=== PATIENT | female | born 1995 | race Caucasian/White ===

== ENCOUNTER 2017-08-02 16:56 | Emergency (ER) | payer SELFPAY ==
[~2017-08-02 16:56] MED LIST: FERR325T PO; IBUP600 PO; PREN0.01 PO
[2017-08-02 17:12] VITALS: BP 145/59; PULSE 54; RESP 16; TEMP 98; O2SAT 100
--- NOTE | 2017-08-02 20:25 | PD ---
HPI Chief Complaint: Abdominal Pain Time Seen by Provider: 17:12 Travel History International Travel<30 days: No Contact w/Intl Traveler<30days: No Traveled to known affect area: No History of Present Illness HPI 22-year-old female presents to emergency department for evaluation of epigastric pain, nausea, vomiting 3 days. She has had fever and chills. No hematemesis. No diarrhea. Denies any chance of . No other symptoms to report. PFSH Past Medical History Medical History: Denies Significant Hx Immunizations Current: Yes LMP: CURRENT Social History Alcohol Use: No Tobacco Use: No Substance Use: No Allergies-Medications (Allergen,Severity, Reaction): Coded Allergies: No Known Allergies (Unverified , 04/13/14) Reported Meds & Prescriptions Reported Meds & Active Scripts Active Motrin 600 Mg Tab (Ibuprofen) 600 Mg Tab 600 Mg PO Q6H PRN Reported Iron (Ferrous Sulfate) 325 Mg Tab 325 Mg PO BID Vit ( Plus) (Prenat Multivit/[employer] Living [employer]/Iron/Folic Ac) Tab 1 Tab PO DAILY Review of Systems Except as stated in HPI: all other systems reviewed are Neg Physical Exam Narrative Well-nourished female patient. She is ambulatory with a non-ataxic gait. She has even respirations. Normal heart rate. No distention of abdomen. No obvious focal deficits. She moves all extremities. She has clear speech. Data Data Last Documented VS Vital Signs Date Time Temp Pulse Resp B/P (MAP) Pulse Ox O2 Delivery O2 Flow Rate FiO2 08/02/17 17:12 98.0 54 16 145/59 (87) 100 Orders Orders Complete Blood Count With Diff (08/02/17 17:13) Comprehensive Metabolic Panel (08/02/17 17:13) Lipase (08/02/17 17:13) Urinalysis - C+S If Indicated (08/02/17 17:13) Ed Urine Pregnancytest Poc (08/02/17 17:13) Urine Culture (08/02/17 19:25) Labs Laboratory Tests Test 08/02/17 19:21 08/02/17 19:25 White Blood Count 8.3 TH/MM3 Red Blood Count 5.24 MIL/MM3 Hemoglobin 14.9 GM/DL Hematocrit 44.0 % Mean Corpuscular Volume 84.0 FL Mean Corpuscular Hemoglobin 28.4 PG Mean Corpuscular Hemoglobin Concent 33.8 % Red Cell Distribution Width 13.0 % Platelet Count 232 TH/MM3 Mean Platelet Volume 9.0 FL Neutrophils (%) (Auto) 81.0 % Lymphocytes (%) (Auto) 14.7 % Monocytes (%) (Auto) 4.1 % Eosinophils (%) (Auto) 0.1 % Basophils (%) (Auto) 0.1 % Neutrophils # (Auto) 6.7 TH/MM3 Lymphocytes # (Auto) 1.2 TH/MM3 Monocytes # (Auto) 0.3 TH/MM3 Eosinophils # (Auto) 0.0 TH/MM3 Basophils # (Auto) 0.0 TH/MM3 CBC Comment DIFF FINAL Differential Comment Blood Urea Nitrogen 16 MG/DL Creatinine 0.66 MG/DL Random Glucose 88 MG/DL Total Protein 8.1 GM/DL Albumin 4.5 GM/DL Calcium Level 9.6 MG/DL Alkaline Phosphatase 37 U/L Aspartate Amino Transf (AST/SGOT) 16 U/L Alanine Aminotransferase (ALT/SGPT) 31 U/L Total Bilirubin 1.0 MG/DL Sodium Level 142 MEQ/L Potassium Level 3.3 MEQ/L Chloride Level 105 MEQ/L Carbon Dioxide Level 23.8 MEQ/L Anion Gap 13 MEQ/L Estimat Glomerular Filtration Rate 110 ML/MIN Lipase 129 U/L Urine Color YELLOW Urine Turbidity HAZY Urine pH 6.0 Urine Specific [place] 1.036 Urine Protein 100 mg/dL Urine Glucose (UA) NEG mg/dL Urine Ketones 80 mg/dL Urine Occult Blood LARGE Urine Nitrite NEG Urine Bilirubin NEG Urine Urobilinogen 2.0 MG/DL Urine Leukocyte Esterase SMALL Urine RBC /hpf Urine WBC 22 /hpf Urine Squamous Epithelial Cells 7 /hpf Urine Calcium Oxalate Crystals OCC /hpf Urine Amorphous Sediment RARE Urine Bacteria OCC /hpf Urine Mucus MANY /lpf Microscopic Urinalysis Comment CULTURE INDICATED MDM Medical Decision Making Medical Screen Exam Complete: Yes Emergency Medical Condition: Yes Medical Record Reviewed: Yes Differential Diagnosis Gastritis versus gastroenteritis versus cholecystitis versus pancreatitis Narrative Course 22-year-old female presents to emergency department for evaluation of nausea and vomiting with epigastric pain 3 days. Patient appears without distress. Vital signs are stable. Workup is initiated in triage. Prior to bed placement , patient chooses to leave. AMA: The risks of leaving against medical advice without further evaluation treatment were discussed with the patient. These risks include cardiac dysfunction, cardiac dysrhythmia, possible heart attack, possible stroke or . The patient indicated understanding of these risks and appeared to have the capacity to make this decision. Diagnosis Primary Impression: Epigastric abdominal pain Disposition: 07 AGAINST MEDICAL ADVICE Condition: Stable Hattie Serra Aug 02, 2017 20:25
[2017-08-02 20:30] LABS: AUTOMATED NEUTROPHIL # 6.7 TH/MM3 (1.8-7.7); BASOPHIL % 0.1 % (0.0-2.0); EOSINOPHIL % 0.1 % (0.0-4.0); HEMOGLOBIN 14.9 GM/DL (11.6-15.3); LYMPH % 14.7 % (9.0-44.0); LYMPHOCYTE # 1.2 TH/MM3 (1.0-4.8); MEAN CORPUSCULAR HEMOGLOBIN 28.4 PG (27.0-34.0); MEAN CORPUSCULAR HGB CONC 33.8 % (32.0-36.0); MONO % 4.1 % (0.0-8.0); MONOCYTE # 0.3 TH/MM3 (0-0.9); PLATELET COUNT 232 TH/MM3 (150-450); RED BLOOD COUNT 5.24 MIL/MM3 (4.00-5.30); WHITE BLOOD COUNT 8.3 TH/MM3 (4.0-11.0)
[2017-08-02 20:31] LABS: AMORPHOUS SEDIMENT, URINE RARE; BACTERIA, URINE OCC /hpf; BILIRUBIN, URINE NEG (NEG); BLOOD, URINE LARGE (NEG); CALCIUM OXALATE CRYSTALS,URINE OCC /hpf; GLUCOSE,URINE NEG (NEG); KETONE, URINE 80 mg/dL (NEG); MUCUS URINE MANY /lpf (OCC); NITRITE,URINE NEG (NEG); SQUAMOUS EPITHELIAL CELL URINE 7 /hpf (0-5); URINE COLOR YELLOW (YELLW/STRAW); URINE LEUKOCYTE ESTERASE SMALL (NEG)
[2017-08-02 20:46] LABS: ALBUMIN 4.5 GM/DL (3.4-5.0); AST (GOT) 16 U/L (15-37); BICARBONATE 23.8 MEQ/L (21.0-32.0); BLOOD UREA NITROGEN 16 MG/DL (7-18); CALCIUM 9.6 MG/DL (8.5-10.1); CHLORIDE 105 MEQ/L (98-107); CREATININE 0.66 MG/DL (0.50-1.00); GLOMERULAR FILTRATION RATE 110 ML/MIN (>89); GLUCOSE,RANDOM 88 MG/DL (74-106); SODIUM (NA) 142 MEQ/L (136-145)
[2017-08-02 20:49] LABS: ALKALINE PHOSPHATASE 37 U/L (45-117); ALT (GPT) 31 U/L (10-53); TOTAL PROTEIN 8.1 GM/DL (6.4-8.2)
== END 2017-08-02 20:15 | disposition left against medical advice (07) ==
LOC: NED 16:56
DX: R10.13 Epigastric pain (principal); R11.2 Nausea with vomiting, unspecified
CPT/HCPCS: 80053; 81001; 83690; 85025; 87086; 99283